=== PATIENT | female | born 1970 | race Caucasian/White ===

== ENCOUNTER → 2022-03-29 | Outpatient (CLI) | payer BC, OTHER ==
[~2022-03-29] MED LIST: IBUPROFEN800 MG PO
== END ==
LOC: MAMO 07:37
DX: R01.1 Cardiac murmur, unspecified (principal); Z12.31 Encounter for screening mammogram for malignant neoplasm of breast; E66.9 Obesity, unspecified; D68.59 Other primary thrombophilia; L73.9 Follicular disorder, unspecified; I08.3 Combined rheumatic disorders of mitral, aortic and tricuspid valves
CPT/HCPCS: ECHO; 77063; 77067; 93306

== ENCOUNTER 2022-04-28 15:13 | Emergency (ER) | payer BC, OTHER ==
[2022-04-28 15:37] LABS: HEMOGLOBIN 12.7 gm/dl (12.3-15.3); RED BLOOD COUNT 4.45 M/UL (4.00-5.10); WHITE BLOOD COUNT 7.4 K/UL (4.5-11.0)
[2022-04-28 16:01] LABS: BUN/CREATININE RATIO 21 (0-10)
[2022-04-28] MEDS ORDERED: IBUPROFEN800 MG PO (21:05)
== END 2022-04-28 21:20 | disposition home or self-care (01) ==
LOC: ER1 15:13
DX: R09.1 Pleurisy (principal)
CPT/HCPCS: 71045; 80053; 82550; 82553; 84484; 85025; 85379; 93005; 99284; Q9967